=== PATIENT | male | born 1935 | race Caucasian/White ===

== ENCOUNTER 2017-10-27 09:13 | Day surgery (SDC) | payer MEDICARE, BC ==
[~2017-10-27] VITALS: Ht 180.3 cm; Wt 86.4 kg
[~2017-10-27 09:13] MED LIST: DIGO250T PO; DILT-35 PO; DILT180T7 PO; FLUT1AER INH; FURO40TA4 PO; GLU850T PO; LIDOcaine 1% 30ml vial SQ STA; LOSA100T13 PO; MONT10TA21 PO; MONT10TA24 PO; OMEP10CA4 PO; WARF2TAB7 PO
[2017-10-27 09:15] VITALS: BP 142/63
[2017-10-27 09:59] LABS: INR 1.8 INR; PROTHROMBIN TIME 17.9 SECONDS (9.0-12.0)
[2017-10-27 10:45] VITALS: BP 136/61
[2017-10-27 10:55] VITALS: BP 142/68
[2017-10-27 11:00] VITALS: BP 142/68
[2017-10-27 11:15] VITALS: BP 136/69
== END 2017-10-27 11:20 | disposition home or self-care (01) ==
LOC: SSTAY O 09:13
PROVIDERS: ATTEND Radiology Diagnostic Radiology
DX: J90 Pleural effusion, not elsewhere classified (principal); I48.2 Chronic atrial fibrillation; E11.9 Type 2 diabetes mellitus without complications; M19.90 Unspecified osteoarthritis, unspecified site; I11.0 Hypertensive heart disease with heart failure; I50.9 Heart failure, unspecified
CPT/HCPCS: 32555; 36415; 71045; 85610; J3490; 88108

== ENCOUNTER 2018-03-19 08:27 | Day surgery (SDC) | payer MEDICARE, BC ==
[~2018-03-19] VITALS: Ht 177.8 cm; Wt 89.6 kg
[~2018-03-19 08:27] MED LIST changes: -GLU850T PO; +LIDOcaine 1% 30ml preserv. free vial SQ STA; -LIDOcaine 1% 30ml vial SQ STA; -MONT10TA24 PO; -OMEP10CA4 PO; +WARF-65 PO; -WARF2TAB7 PO
[2018-03-19 08:53] VITALS: BP 132/67
[2018-03-19 10:03] LABS: INR 1.3 INR; PROTHROMBIN TIME 13.4 SECONDS (9.0-12.0)
[2018-03-19 10:15] VITALS: BP 137/58
[2018-03-19 10:34] VITALS: BP 129/66
== END 2018-03-19 10:35 | disposition home or self-care (01) ==
LOC: SSTAY O 08:27
PROVIDERS: ATTEND Radiology Diagnostic Radiology
DX: J90 Pleural effusion, not elsewhere classified (principal); E11.9 Type 2 diabetes mellitus without complications; I48.2 Chronic atrial fibrillation; I11.0 Hypertensive heart disease with heart failure; I50.23 Acute on chronic systolic (congestive) heart failure; I25.10 Atherosclerotic heart disease of native coronary artery without angina pectoris; M19.90 Unspecified osteoarthritis, unspecified site; Z79.01 Long term (current) use of anticoagulants; Z79.84 Long term (current) use of oral hypoglycemic drugs; Z96.641 Presence of right artificial hip joint; Z96.652 Presence of left artificial knee joint; Z96.611 Presence of right artificial shoulder joint; Z96.612 Presence of left artificial shoulder joint; Z90.89 Acquired absence of other organs; Z72.89 Other problems related to lifestyle; Z87.11 Personal history of peptic ulcer disease; Z79.899 Other long term (current) drug therapy; Z98.890 Other specified postprocedural states
CPT/HCPCS: 32555; 36415; 71045; 85610

== ENCOUNTER 2018-08-31 08:03 | Day surgery (SDC) | payer MEDICARE, BC ==
[~2018-08-31] VITALS: Ht 177.8 cm; Wt 85.3 kg
[~2018-08-31 08:03] MED LIST changes: -DIGO250T PO
[2018-08-31 08:50] VITALS: BP 146/85
[2018-08-31 09:15] LABS: INR 1.2 INR; PROTHROMBIN TIME 11.9 SECONDS (9.0-12.0)
== END 2018-08-31 10:40 | disposition home or self-care (01) ==
LOC: SSTAY O 08:03
PROVIDERS: ATTEND Radiology Diagnostic Radiology
DX: J90 Pleural effusion, not elsewhere classified (principal); I48.2 Chronic atrial fibrillation; I10 Essential (primary) hypertension; E11.9 Type 2 diabetes mellitus without complications; M19.90 Unspecified osteoarthritis, unspecified site; Z79.01 Long term (current) use of anticoagulants; Z79.84 Long term (current) use of oral hypoglycemic drugs; Z96.611 Presence of right artificial shoulder joint; Z96.612 Presence of left artificial shoulder joint; Z87.01 Personal history of pneumonia (recurrent); Z87.11 Personal history of peptic ulcer disease; Z96.641 Presence of right artificial hip joint; Z96.652 Presence of left artificial knee joint; Z90.89 Acquired absence of other organs; Z72.89 Other problems related to lifestyle; Z98.890 Other specified postprocedural states; Z79.899 Other long term (current) drug therapy
CPT/HCPCS: 32555; 36415; 71045; 85610; J3490

== ENCOUNTER 2018-11-27 12:26 | Outpatient (CLI) | payer MEDICARE, BC ==
[~2018-11-27 12:26] MED LIST changes: -LIDOcaine 1% 30ml preserv. free vial SQ STA
== END 2018-11-27 23:59 | disposition home or self-care (01) ==
LOC: CARD DIAG 12:26
PROVIDERS: ATTEND Internal Medicine Critical Care Medicine
DX: I27.0 Primary pulmonary hypertension (principal); I35.0 Nonrheumatic aortic (valve) stenosis; I08.1 Rheumatic disorders of both mitral and tricuspid valves; I51.7 Cardiomegaly; I10 Essential (primary) hypertension; K21.9 Gastro-esophageal reflux disease without esophagitis; E11.9 Type 2 diabetes mellitus without complications; Z79.899 Other long term (current) drug therapy
CPT/HCPCS: 93306

== ENCOUNTER 2018-12-10 09:49 | Day surgery (SDC) | payer MEDICARE, BC ==
[~2018-12-10] VITALS: Ht 177.8 cm; Wt 86.6 kg
[~2018-12-10 09:49] MED LIST changes: +LIDOcaine 1% 30ml preserv. free vial SQ STA
[2018-12-10 10:08] VITALS: BP 149/69
[2018-12-10] MEDS ORDERED: HYDROcodone/acetaminophen 10/325mg tab PO PRN (10:15)
[2018-12-10] MEDS ORDERED: COU4T PO (10:39)
[2018-12-10] MEDS ORDERED: DILT120T3 PO (10:39)
[2018-12-10] MEDS ORDERED: COU5T PO (10:39)
[2018-12-10 10:56] LABS: ALBUMIN 3.3 G/DL (3.4-5.0); TOTAL PROTEIN 8.1 G/DL (6.4-8.2)
[2018-12-10 11:20] LABS: INR 1.4 INR
[2018-12-10 12:56] VITALS: BP 138/70
[2018-12-10 13:02] VITALS: BP 121/73
[2018-12-10 13:15] VITALS: BP 135/73
[2018-12-10 14:23] LABS: ALBUMIN,BODY FLUID 1.7 G/DL
== END 2018-12-10 13:15 | disposition home or self-care (01) ==
LOC: SSTAY O 09:49
PROVIDERS: ATTEND Radiology Diagnostic Radiology
DX: J90 Pleural effusion, not elsewhere classified (principal); I48.2 Chronic atrial fibrillation; I10 Essential (primary) hypertension; E11.9 Type 2 diabetes mellitus without complications; M19.90 Unspecified osteoarthritis, unspecified site; Z79.899 Other long term (current) drug therapy; Z79.01 Long term (current) use of anticoagulants
CPT/HCPCS: 32555; 71045; 82040; 82042; 82945; 83615; 84155; 84157; 85610; J3490; 88108; 88305; C1729